=== PATIENT | female | born 1945 | race Caucasian/White ===

== ENCOUNTER → 2019-09-21 | Outpatient (CLI) | payer MEDICARE | END | disposition home or self-care (01) | LOC: RAD 08:48 | PROVIDERS: ATTEND Family Medicine | DX: C34.92 Malignant neoplasm of unspecified part of left bronchus or lung (principal); Z79.899 Other long term (current) drug therapy; Z88.0 Allergy status to penicillin; Z88.8 Allergy status to other drugs, medicaments and biological substances; Z80.3 Family history of malignant neoplasm of breast; Z82.3 Family history of stroke | CPT/HCPCS: 36573; C1751 ==

== ENCOUNTER → 2019-10-02 | Outpatient (CLI) | payer MEDICARE | END | disposition home or self-care (01) | LOC: ROC 07:54 | PROVIDERS: ATTEND Radiology Radiation Oncology | DX: C34.12 Malignant neoplasm of upper lobe, left bronchus or lung (principal); Z80.3 Family history of malignant neoplasm of breast | CPT/HCPCS: 99214; G0463 ==

== ENCOUNTER 2019-10-16 13:23 | Outpatient (CLI) | payer MEDICARE ==
[2019-10-16] MEDS ORDERED: GADOTERATE 7.5 MMOL/15 ML SYR ONE (14:30)
== END 2019-10-16 23:59 | disposition home or self-care (01) ==
LOC: CFH 13:23
PROVIDERS: ATTEND Radiology Radiation Oncology
DX: C79.31 Secondary malignant neoplasm of brain (principal); I67.82 Cerebral ischemia; G93.89 Other specified disorders of brain
CPT/HCPCS: 70553; A9575

== ENCOUNTER → 2019-12-04 | Outpatient (CLI) | payer MEDICARE ==
[~2019-12-04] MED LIST: ATOR-2 PO; CYCL-259 PO; DOXY-162 PO; FOLI-17 PO; GADOTERATE 5 MMOL/10 ML VIAL ONE; METF500T17 PO; ONDA8TAB9 PO; PROC10TA78 PO
== END | disposition home or self-care (01) ==
LOC: CFH 12:46
PROVIDERS: ATTEND Radiology Radiation Oncology
DX: C79.31 Secondary malignant neoplasm of brain (principal); G31.89 Other specified degenerative diseases of nervous system; D32.0 Benign neoplasm of cerebral meninges
CPT/HCPCS: 70553; A9575

== ENCOUNTER 2019-12-14 10:16 | Outpatient (CLI) | payer MEDICARE ==
[~2019-12-14 10:16] MED LIST changes: +ACETAMINOPHEN 325 MG TABLET ONE; +DIPHENHYDRAMINE 50 MG/ML, 1ML ONE; -GADOTERATE 5 MMOL/10 ML VIAL ONE
== END 2019-12-14 23:59 | disposition home or self-care (01) ==
LOC: ROC 10:16
PROVIDERS: ATTEND Radiology Radiation Oncology
DX: Z02.9 Encounter for administrative examinations, unspecified (principal)

== ENCOUNTER 2019-12-19 08:50 | Outpatient (CLI) | payer MEDICARE ==
[~2019-12-19 08:50] MED LIST changes: -ACETAMINOPHEN 325 MG TABLET ONE; -DIPHENHYDRAMINE 50 MG/ML, 1ML ONE
== END 2019-12-19 23:59 | disposition home or self-care (01) ==
LOC: ROC 08:50
PROVIDERS: ATTEND Radiology Radiation Oncology
DX: C34.12 Malignant neoplasm of upper lobe, left bronchus or lung (principal); C79.31 Secondary malignant neoplasm of brain; Z79.899 Other long term (current) drug therapy
CPT/HCPCS: G0463

== ENCOUNTER → 2020-02-07 | Outpatient (CLI) | payer MEDICARE ==
[~2020-02-07] MED LIST changes: +GADOTERATE 5 MMOL/10 ML VIAL ONE
== END | disposition home or self-care (01) ==
LOC: CFH 08:30
PROVIDERS: ATTEND Radiology Radiation Oncology
DX: C79.31 Secondary malignant neoplasm of brain (principal)
CPT/HCPCS: 70553; A9575

== ENCOUNTER → 2020-02-14 | Outpatient (CLI) | payer MEDICARE ==
[~2020-02-14] MED LIST changes: -GADOTERATE 5 MMOL/10 ML VIAL ONE
== END | disposition home or self-care (01) ==
LOC: ROC 07:08
PROVIDERS: ATTEND Radiology Radiation Oncology
DX: C34.12 Malignant neoplasm of upper lobe, left bronchus or lung (principal); C79.51 Secondary malignant neoplasm of bone
CPT/HCPCS: G0463

== ENCOUNTER → 2020-02-27 | Outpatient (CLI) | payer MEDICARE | END | disposition home or self-care (01) | LOC: CFH 15:25 | PROVIDERS: ATTEND Ophthalmology | DX: I08.2 Rheumatic disorders of both aortic and tricuspid valves (principal); C34.90 Malignant neoplasm of unspecified part of unspecified bronchus or lung; I95.9 Hypotension, unspecified | CPT/HCPCS: 93306; 93880 ==

== ENCOUNTER 2020-03-19 10:57 | Outpatient (CLI) | payer MEDICARE ==
[2020-03-23] MEDS ORDERED: PEMB100V IV (10:50)
[2020-03-23] MEDS ORDERED: MECO10005 IM/IV (10:50)
[2020-03-23] MEDS ORDERED: MELA10TA7 PO (11:54)
[2020-03-23] MEDS ORDERED: LUTE20CA2 PO (11:54)
[2020-03-23] MEDS ORDERED: GUAI12009 PO (12:33)
[2020-03-23] MEDS ORDERED: NALT50TA PO (12:33)
[2020-03-23] MEDS ORDERED: BENZ100C PO (12:33)
== END 2020-03-19 23:59 | disposition home or self-care (01) ==
LOC: CFH 10:57 → RAD 23:59
PROVIDERS: ATTEND Family Medicine
DX: M71.21 Synovial cyst of popliteal space [Baker], right knee (principal); M47.816 Spondylosis without myelopathy or radiculopathy, lumbar region; C34.12 Malignant neoplasm of upper lobe, left bronchus or lung; M41.86 Other forms of scoliosis, lumbar region; D25.9 Leiomyoma of uterus, unspecified
CPT/HCPCS: 72110; 72190

== ENCOUNTER 2020-04-01 09:17 | Outpatient (CLI) | payer MEDICARE ==
[~2020-04-01 09:17] MED LIST changes: +BENZ100C PO; +GUAI12009 PO; +LUTE20CA2 PO; +MECO10005 IM/IV; +MELA10TA7 PO; +NALT50TA PO; +PEMB100V IV
== END 2020-04-01 23:59 | disposition home or self-care (01) ==
LOC: RAD 09:17
PROVIDERS: ATTEND Family Medicine
DX: C34.12 Malignant neoplasm of upper lobe, left bronchus or lung (principal); C79.51 Secondary malignant neoplasm of bone; C78.7 Secondary malignant neoplasm of liver and intrahepatic bile duct
CPT/HCPCS: 36573; C1751

== ENCOUNTER → 2020-04-09 | Outpatient (CLI) | payer MEDICARE ==
[~2020-04-09] MED LIST changes: +GADOTERATE 7.5 MMOL/15 ML SYR ONE
== END | disposition home or self-care (01) ==
LOC: RAD 08:43
PROVIDERS: ATTEND Radiology Radiation Oncology
DX: C79.31 Secondary malignant neoplasm of brain (principal); G93.89 Other specified disorders of brain
CPT/HCPCS: 70553; A9575

== ENCOUNTER → 2020-06-13 | Outpatient (CLI) | payer MEDICARE ==
[~2020-06-13] MED LIST changes: +ALBE200T4 PO; -GADOTERATE 7.5 MMOL/15 ML SYR ONE
== END | disposition home or self-care (01) ==
LOC: LAB 15:56
PROVIDERS: ATTEND Family Medicine
DX: J18.9 Pneumonia, unspecified organism (principal); M41.85 Other forms of scoliosis, thoracolumbar region; A41.9 Sepsis, unspecified organism
CPT/HCPCS: 36415; 71046; 84145; 87040

== ENCOUNTER 2020-06-25 11:09 | Emergency (ER) | payer MEDICARE ==
[~2020-06-25] VITALS: Ht 149.9 cm; Wt 45.0 kg
[2020-06-25] MEDS ORDERED: SODIUM CHLORIDE FLUSH 10ML SYR IVF ONE (11:30)
--- NOTE | 2020-06-25 11:42 | NUR ---
lime vat tender: pt to room 20 from [facility]
[2020-06-25 12:07] LABS: BASOPHILS % (AUTO) 1 % (0-1); EOSINOPHILS % (AUTO) 4 % (1-7); LYMPHOCYTES % (AUTO) 11 % (22-44); MEAN CORPUSCULAR HGB CONC 32.3 g/dL (32.4-35.8); MEAN PLATELET VOLUME 7.9 fL (7.4-10.4); MONOCYTES % (AUTO) 9 % (2-9); NEUTROPHILS % (AUTO) 75 % (42-75); PLATELET COUNT 456 x10^3/uL (130-400); RED BLOOD COUNT 4.17 x10^6/uL (3.82-5.3); RED CELL DISTRIBUTION WIDTH 31.3 % (9.6-15.2)
[2020-06-25 12:19] LABS: ALANINE AMINOTRANSFERASE 13 U/L (12-78); ALBUMIN 3.3 g/dL (3.4-5.0); ANION GAP 8 mmol/L (5-15); CALCIUM 8.8 mg/dL (8.5-10.1); CHLORIDE 107 mmol/L (98-107); CREATININE 0.61 mg/dL (0.55-1.02)
[2020-06-25 12:23] LABS: ALKALINE PHOSPHATASE 202 U/L (45-117); BILIRUBIN,TOTAL 0.5 mg/dL (0.2-1.0); TOTAL PROTEIN 7.2 g/dL (6.4-8.2); TROPONIN I < 0.015 ng/mL (0.000-0.045)
[2020-06-25 12:39] LABS: MD MORPH REVIEW ONLY
[2020-06-25 12:40] LABS: <PLATELET ESTIMATE> INCREASED; <PLT MORPHOLOGY> NORMAL PLT MORPH; ANISOCYTOSIS 1+; HYPOCHROMIA 1+; MICROCYTOSIS 1+; OVALOCYTES 1+; TEAR DROPS 1+
--- NOTE | 2020-06-25 13:22 | NUR ---
Tech here to take pt via gurricky to CT at this time.
[2020-06-25] MEDS ORDERED: OMNIPAQUE 350 MG/ML, 100ML BOTTLE ONE (13:40)
--- NOTE | 2020-06-25 13:50 | NUR ---
Pt back in room, VS reassessed to be WNL, and declines anything for 3/10 chest pain in left upper chest stating it has not changed from triage and feels "okay" in her current position in bed. Pt asking for CT scan results at discharge for her oncologist tomorrow if she is not admitted.
--- NOTE | 2020-06-25 14:14 | NUR ---
MD walked in now to discuss findings and plan of care with pt.
[2020-06-25 14:41] VITALS: BP 119/59
== END 2020-06-25 14:49 | disposition home or self-care (01) ==
LOC: ED 14:46
DX: R06.00 Dyspnea, unspecified (principal); C78.00 Secondary malignant neoplasm of unspecified lung; R05 Cough; M54.6 Pain in thoracic spine; R00.0 Tachycardia, unspecified
CPT/HCPCS: 36415; 71275; 80053; 84484; 85025; 93005; 99285; Q9967

== ENCOUNTER 2020-07-05 11:54 | Emergency (ER) | payer MEDICARE ==
[~2020-07-05] VITALS: Ht 149.9 cm; Wt 45.7 kg
--- NOTE | 2020-07-05 12:28 | NUR ---
PT PROVIDED WARM BLANKETS, WATER ON REQUEST. CALL LIGHT WITHIN REACH. AWAITING ORDERS FROM [facility].
--- NOTE | 2020-07-05 12:58 | NUR ---
ERP IN TO REMOVE PICC LINE
--- NOTE | 2020-07-05 13:13 | NUR ---
SPECIMEN WITH PICC TIP WALKED TO LAB.
[2020-07-05 13:19] VITALS: BP 112/62
== END 2020-07-05 13:26 | disposition home or self-care (01) ==
LOC: ED 12:30
DX: M79.621 Pain in right upper arm (principal); R21 Rash and other nonspecific skin eruption; Z45.2 Encounter for adjustment and management of vascular access device
CPT/HCPCS: 87070; 99283

== ENCOUNTER → 2020-08-13 | Outpatient (CLI) | payer MEDICARE ==
[~2020-08-13] MED LIST changes: -ALBE200T4 PO; -CYCL-259 PO; +CYCL10TA2 PO; -FOLI-17 PO; +FOLI1TAB32 PO; +[UNRECOGNIZED DRUG - CODE] PO
== END | disposition home or self-care (01) ==
LOC: ROC 07:26
PROVIDERS: ATTEND Radiology Radiation Oncology
DX: Z08 Encounter for follow-up examination after completed treatment for malignant neoplasm (principal); Z85.841 Personal history of malignant neoplasm of brain; I89.0 Lymphedema, not elsewhere classified; Z79.899 Other long term (current) drug therapy
CPT/HCPCS: G0463

== ENCOUNTER 2020-08-16 08:45 | Outpatient (CLI) | payer MEDICARE ==
[2020-08-16] MEDS ORDERED: GADOTERATE 5 MMOL/10 ML VIAL ONE (09:58)
[2020-08-21] MEDS ORDERED: PSEU120T9 PO (14:36)
[2020-09-12] MEDS ORDERED: LEVO7.5T11 PO (23:45)
[2020-09-12] MEDS ORDERED: CETI10TA76 PO (23:45)
[2020-09-12] MEDS ORDERED: TURM1POW2 PO (23:52)
[2020-09-12] MEDS ORDERED: MILK150C2 PO (23:52)
[2020-09-12] MEDS ORDERED: [UNRECOGNIZED DRUG - OTHER] (23:52)
[2020-09-12] MEDS ORDERED: [UNRECOGNIZED DRUG - OTHER] (23:52)
[2020-09-12] MEDS ORDERED: QUER1POW PO (23:52)
[2020-09-14] MEDS ORDERED: OXYC5TAB98 PO (12:45)
[2020-09-14] MEDS ORDERED: POLY17PO5 PO (12:45)
[2020-09-14] MEDS ORDERED: OXYC15TA60 PO (12:45)
== END 2020-08-16 23:59 | disposition home or self-care (01) ==
LOC: RAD 08:45
PROVIDERS: ATTEND Radiology Radiation Oncology
DX: C79.31 Secondary malignant neoplasm of brain (principal); C79.51 Secondary malignant neoplasm of bone; R91.8 Other nonspecific abnormal finding of lung field; M40.292 Other kyphosis, cervical region; M47.812 Spondylosis without myelopathy or radiculopathy, cervical region; M48.02 Spinal stenosis, cervical region; G93.89 Other specified disorders of brain; G31.89 Other specified degenerative diseases of nervous system
CPT/HCPCS: 70553; 71046; 72156; A9575

== ENCOUNTER → 2020-09-03 | Outpatient (CLI) | payer MEDICARE ==
[~2020-09-03] MED LIST changes: +PSEU120T9 PO
== END | disposition home or self-care (01) ==
LOC: RAD 16:51
PROVIDERS: ATTEND Internal Medicine Hematology & Oncology
DX: C34.12 Malignant neoplasm of upper lobe, left bronchus or lung (principal); R91.8 Other nonspecific abnormal finding of lung field
CPT/HCPCS: 71046

== ENCOUNTER 2020-09-14 18:59 | Emergency (ER) | payer MEDICARE ==
[~2020-09-14] VITALS: Ht 149.9 cm; Wt 44.0 kg
[~2020-09-14 18:59] MED LIST changes: +CETI10TA76 PO; +LEVO7.5T11 PO; +MILK150C2 PO; +OXYC15TA60 PO; +OXYC5TAB98 PO; +POLY17PO5 PO; +QUER1POW PO; +TURM1POW2 PO; +[UNRECOGNIZED DRUG - OTHER]; +[UNRECOGNIZED DRUG - OTHER]
--- NOTE | 2020-09-14 20:12 | NUR ---
PATIENT RESTING IN BED IN NAD. SHE REPORTS COMING TO ER FOR CONSTIPATION RECENTLY AND HAS NOT BEEN ABLE TO [employer] HER PAIN MEDICATIONS "FOR 2 DAYS". PATIENT IS FLACC 0 WHILE RESTING IN BED. WILL CONTINUE TO MONITOR.
--- NOTE | 2020-09-14 20:24 | NUR ---
DISCHARGE INSTRUCTIONS REVIEWED WITH PATIENT. NO FURTHER QUESTIONS. DOCUMENTATION ON DC INSTRUCTIONS SHOW PRESCRIPTIONS WERE SENT TO [facility]. PATENT ACKNOWLEDGES THIS. REQUESTED WC TO [facility]. STEADY GAIT OTHERWISE. ALL PERSONAL BELONGINGS WITH PATIENT ON DEPARTURE. NO IV PLACED DURING THIS ER VISIT
[2020-09-14 20:37] VITALS: BP 136/73
== END 2020-09-14 20:39 | disposition home or self-care (01) ==
LOC: ED 19:31
DX: M54.9 Dorsalgia, unspecified (principal); G89.29 Other chronic pain; Z76.0 Encounter for issue of repeat prescription; Z85.830 Personal history of malignant neoplasm of bone; Z85.118 Personal history of other malignant neoplasm of bronchus and lung
CPT/HCPCS: 99281

== ENCOUNTER → 2020-10-08 | Outpatient (CLI) | payer MEDICARE ==
[~2020-10-08] MED LIST changes: +IPIL50VI IV; +NIVO40VI IV; +OMNIPAQUE 350 MG/ML, 100ML BOTTLE ONE
== END | disposition home or self-care (01) ==
LOC: CFH 12:55
PROVIDERS: ATTEND Internal Medicine Hematology & Oncology
DX: C78.7 Secondary malignant neoplasm of liver and intrahepatic bile duct (principal); C34.12 Malignant neoplasm of upper lobe, left bronchus or lung; R10.10 Upper abdominal pain, unspecified; J90 Pleural effusion, not elsewhere classified; J98.11 Atelectasis; R18.8 Other ascites; R59.1 Generalized enlarged lymph nodes; E27.8 Other specified disorders of adrenal gland
CPT/HCPCS: 74160; Q9967

== ENCOUNTER → 2020-10-15 | Outpatient (CLI) | payer MEDICARE ==
[~2020-10-15] MED LIST changes: -OMNIPAQUE 350 MG/ML, 100ML BOTTLE ONE
== END | disposition home or self-care (01) ==
LOC: ROC 10:40
PROVIDERS: ATTEND Radiology Radiation Oncology
DX: Z08 Encounter for follow-up examination after completed treatment for malignant neoplasm (principal); Z85.841 Personal history of malignant neoplasm of brain; Z85.830 Personal history of malignant neoplasm of bone; Z85.118 Personal history of other malignant neoplasm of bronchus and lung; G89.29 Other chronic pain; Z87.891 Personal history of nicotine dependence
CPT/HCPCS: G0463